=== PATIENT | female | born 1960 | race Caucasian/White ===

== ENCOUNTER 2021-09-19 15:10 | Outpatient (CLI) | payer OTHER ==
--- NOTE | 2021-09-19 17:46 | XRAY Report ---
PROCEDURE: Hip w/Pelvis 2-3V RT INDICATIONS: RT HIP PAIN TECHNIQUE: AP pelvis with lateral view(s) of the right hip(s). COMPARISON: None. FINDINGS: Bones: No fractures or dislocations. Pelvic ring appears intact. 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 Soft tissues: The visualized bowel gas pattern is normal. No suspicious soft tissue calcifications. An IUD is present within the pelvis. IMPRESSION: Lung 1. 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 No acute abnormality. 2. An IUD is present within the pelvis centrally. Reviewed by: Gabriel Crowley on 09/19/2021 5:45 PM PDT Approved by: Gabriel Crowley on 09/19/2021 5:45 PM PDT Station ID: [id number]
== END 2021-09-19 15:11 | disposition home or self-care (01) ==
LOC: DI 15:10
PROVIDERS: ATTEND Internal Medicine
DX: M16.0 Bilateral primary osteoarthritis of hip (principal); M47.898 Other spondylosis, sacral and sacrococcygeal region; Z97.5 Presence of (intrauterine) contraceptive device